=== PATIENT | male | born 2000 | race African-American/Black ===

== ENCOUNTER 2024-08-02 10:52 | Emergency (ER) | payer MEDICAID ==
[~2024-08-02] VITALS: Ht 190.5 cm; Wt 78.0 kg
[2024-08-02 10:58] VITALS: PULSE 84; O2SAT 99
[2024-08-02 11:13] VITALS: BP 113/73; RESP 18; TEMP 98.6; O2SAT 97
[2024-08-02] MEDS ORDERED: BO1 TP (12:02)
== END 2024-08-02 13:00 | disposition home or self-care (01) ==
LOC: ER 10:52
DX: S61.411A Laceration without foreign body of right hand, initial encounter (principal); X58.XXXA Exposure to other specified factors, initial encounter; Y93.89 Activity, other specified; Y92.89 Other specified places as the place of occurrence of the external cause; Y99.8 Other external cause status
CPT/HCPCS: 73120; 99283